=== PATIENT | male | born 1985 | race Caucasian/White ===

== ENCOUNTER 2024-11-14 16:38 | Emergency (ER) | payer BC ==
--- NOTE | 2024-11-14 18:24 | ERPHSYRPT ---
- History of Present Illness Source: patient Exam Limitations: no limitations Timing/Duration: day(s) (2), worse Cough Quality/Degree: mild Possible Cause: no prior episodes Modifying Factors: Improves With: coughing Associated Symptoms: cough, muscle aches, nasal congestion <DAIANA INFANTE - Last Filed: 11/14/24 19:11> <SPARKLEWADE - Last Filed: 11/14/24 20:23> - History of Present Illness Time Seen by Provider: 11/14/24 18:23 Physician History: This is a 39-year-old white male patient who presents to the emergency department by private vehicle because of 2-day history of cough, fever, headache and bodyaches. Patient also has nasal congestion. (DAIANA INFANTE) Allergies/Adverse Reactions: No Known Drug Allergies Allergy (Verified 11/14/24 18:20) Home Medications: No Reportable Medications [No Reported Medications] 11/14/24 [History] Travel Risk - International Travel Have you traveled outside of the country in past 3 weeks: No - Emerging Infectious Disease Symptoms: Cough: New Onset, Headaches/Body Aches/ <DAIANA INFANTE - Last Filed: 11/14/24 19:11> - Review of Systems Constitutional: No Symptoms Eyes: No Symptoms Ears, Nose, & Throat: No Symptoms Respiratory: Cough Cardiac: No Symptoms Abdominal/Gastrointestinal: No Symptoms Musculoskeletal: Arthralgias, Myalgias Skin: No Symptoms Neurological: No Symptoms Psychological: No Symptoms Endocrine: No Symptoms Hematologic/Lymphatic: No Symptoms Immunological/Allergic: No Symptoms All Other Systems: Reviewed and Negative <DAIANA INFANTE - Last Filed: 11/14/24 19:11> - Physical Exam General Appearance: no apparent distress, alert, anxiety Eye Exam: PERRL/EOMI, eyes nml inspection Ears, Nose, Throat Exam: normal ENT inspection, moist mucous membranes Neck Exam: normal inspection, non-tender, supple, full range of motion Respiratory Exam: normal breath sounds, lungs clear, airway intact, No chest tenderness, No respiratory distress Cardiovascular Exam: regular rate/rhythm, normal heart sounds, normal peripheral pulses Gastrointestinal/Abdomen Exam: soft, normal bowel sounds, No tenderness Rectal Exam: not done Back Exam: normal inspection, normal range of motion, No CVA tenderness, No vertebral tenderness Extremity Exam: normal inspection, normal range of motion, pelvis stable Neurologic Exam: alert, oriented x 3, cooperative, vending technician II-XII nml as tested, nml cerebellar function, nml station & gait, sensation nml Skin Exam: normal color, warm, dry Lymphatic Exam: No adenopathy SpO2 Interpretation: normal O2 Delivery: Room Air <DAIANA INFANTE - Last Filed: 11/14/24 19:11> - Nursing Vital Signs Nursing Vital Signs: Initial Vital Signs Temperature 97.5 F 11/14/24 18:21 Pulse Rate 66 11/14/24 18:21 Respiratory Rate 17 11/14/24 18:21 Blood Pressure 133/97 11/14/24 18:21 O2 Sat by Pulse Oximetry 98 11/14/24 18:21 Pain Scale Pain Intensity 3 - Course Nursing assessment & vital signs reviewed: Yes <DAIANA INFANTE - Last Filed: 11/14/24 19:11> Lab/Rad Data: Laboratory Results 11/14/24 Range/Units 18:28 Influenza Type A Ag POSITIVE A (NEGATIVE) Influenza Type B Ag NEGATIVE (NEGATIVE) RSV (PCR) NEGATIVE (NEGATIVE) SARS-CoV-2 (PCR) NEGATIVE (NEGATIVE) - Progress Progress: re-examined Air Movement: good <DAIANA INFANTE - Last Filed: 11/14/24 19:11> - Progress Blood Culture(s) Obtained: No Antibiotics given: No Counseled pt/family regarding: lab results, diagnosis, need for follow-up <WADE BRITTON - Last Filed: 11/14/24 20:23> - Progress Progress Note: 11/14/24 19:13 Medical decision making and the assignment of low complexity to this patient's medical issue today is based on review of the patient's past medical history, review that patient's medication list, review the patient drug allergy list, history present illness and physical findings on examination. The workup in this patient includes viral swabs and group A strep test. Differential diagnosis includes but is not limited to viral illness, strep pharyngitis. I am transferring care of this patient to Dr. Wade Britton at shift change. He will follow-up on the pending study results and make final disposition. (DAIANA INFANTE) 39-year-old male presents to our ED for evaluation of viral illness. Patient initially evaluated by Dr. Infante. Patient endorsed to Dr. Britton at approximately 7 PM change of shift. Workup reveals influenza A positive. Patient declined Tamiflu. We had an extensive discussion regarding hydration supportive care and minimizing risk of passing the infection onto others. Work note provided. Significant other at bedside. Patient states he is ready for discharge. He voices no other complaints or concerns at this time. Portions of this note were created with voice recognition technology. There may be grammatical, spelling, punctuation or sound alike errors 11/14/24 20:21 (WADE BRITTON) - Departure Departure Disposition: Home Critical Care Time: No <DAIANA INFANTE - Last Filed: 11/14/24 19:11> <WADE BRITTON - Last Filed: 11/14/24 20:23> - Departure Clinical Impression: Coughing, Influenza A Condition: Stable Referrals: KATELIN TATE MD [Primary Care Provider] - Follow up/PCP as directed Additional Instructions: Discharge/Care Plan MEG HIGH THONG was seen on 11/14/24 in the Emergency Room. The patient was counseled regarding Diagnosis,Lab results, Imaging studies, need for follow up and when to return to the Emergency Room. Prescriptions given: Discharge Note I have spoken with the patient and/or caregivers. I have explained the patient's condition, diagnosis and treatment plan based on the information available to me at this time. I have answered the patient's and/or caregiver's questions and addressed any concerns. The patient and/or caregivers have as good understanding of the patient's diagnosis, condition and treatment plan as can be expected at this point. The vital signs have been stable. The patient's condition is stable and appropriate for discharge from the emergency department. The patient will pursue further outpatient evaluation with the primary care physician or other designated or consulting physician as outlined in the discharge instructions. The patient and/or caregivers are agreeable to this plan of care and follow-up instructions have been explained in detail. The patient and/or caregivers have received these instruction. The patient/and or caregivers are aware that any significant change in condition or worsening of symptoms should prompt an immediate return to this or the closest emergency department or call 911. Forms: Work/School Release Form
[2024-11-14 18:30] VITALS: TEMP 97.5
[2024-11-14 19:06] LABS: INFLUENZA B NEGATIVE (NEGATIVE); RESPIRATORY SYNCTIAL VIRUS NEGATIVE (NEGATIVE); SARS-CoV-2 Xpert Express NEGATIVE (NEGATIVE)
[2024-11-14 19:19] LABS: INFLUENZA A POSITIVE (NEGATIVE)
[2024-11-14 19:59] VITALS: O2SAT 99
[2024-11-14 20:09] VITALS: BP 121/91; PULSE 65; RESP 19
== END 2024-11-14 20:33 | disposition home or self-care (01) ==
LOC: ED 16:38
DX: J10.1 Influenza due to other identified influenza virus with other respiratory manifestations (principal); R05.1 Acute cough; R50.9 Fever, unspecified; R51.9 Headache, unspecified; M79.10 Myalgia, unspecified site
CPT/HCPCS: 0241U; 99284; 99282